=== PATIENT | male | born 1980 | race Caucasian/White ===

== ENCOUNTER 2018-06-26 14:56 | Emergency (ER) | payer OTHER ==
[2018-06-26] MEDS ORDERED: Lidocaine 2% 20 ML MDV INJECT ONE (14:57)
--- NOTE | 2018-06-26 15:36 | EDM.PDOC ---
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 There is no active bleeding. His range of motion and sensation are intact. His tetanus vax status needs updating. L 3rd digit Pain Score (Numeric/FACES): 1 - Related Data Allergies Allergy/AdvReac Type Severity Reaction Status Date / Time amoxicillin [Amoxicillin] Allergy Cannot Verified 07/02/14 06:06 Remember codeine Allergy Cannot Verified 07/02/14 06:06 Remember erythromycin base Allergy Hives Verified 06/26/18 15:19 Home Meds: Home Meds NK [No Known Home Meds] 07/02/14 [History] ED ROS GENERAL - Review of Systems Review Of Systems: ROS reveals no pertinent complaints other than HPI. ED EXAM, SKIN/RASH Exam: See Below Exam Limited By: No Limitations General Appearance: Alert, WD/WN, No Apparent Distress Head: Atraumatic Neck: Normal Inspection, Supple, Non-Tender, Full Range of Motion Respiratory/Chest: Lungs Clear Cardiovascular: Regular Rate, Rhythm Back Exam: Normal Inspection Extremities: Normal Range of Motion, Other (L middle finger: open dorsal linear wound measuring 1.8 cm with grease and debris from glove; FROM, CMS intact) Neurological: Alert, Oriented, CN II-XII Intact Psychiatric: Normal Affect, Normal Mood Skin: Warm, Dry, No Rash, Other (wound to L middle finger as annotated above) ED SKIN PROCEDURES - Laceration/Wound Repair Left Midline Distal Other Lac/Wound length In cm: 1.8 (L middle finger) Appearance: Subcutaneous, Linear, Moderately Contaminated Distal NVT: Neuro & Vascular Intact, No Tendon Injury Local Anesthesia - Lidocaine (Xylocaine): 2% Plain Local Anesthetic Volume: 3cc Skin Prep: Chlorhexidine (Hibiciens), Other (surgisoap) Exploration/Debridement/Repair: Wound Explored, Moderate Debridement Closed with: Sutures Suture Size: 4-0 # of Sutures: 4 Suture Type: Nylon Drain Placement: No Sterile Dressing Applied: Nurse Tetanus Status Addressed: Yes Complications: No Course - Vital Signs Text/Narrative:: Patient tolerated procedure well. An Adacel vax was administered. Last Recorded V/S: Last Vital Signs Temp 36.6 C 06/26/18 15:15 Pulse 84 06/26/18 15:15 Resp 18 06/26/18 15:15 BP 149/84 H 06/26/18 15:15 Pulse Ox 99 06/26/18 15:15 - Orders/Labs/Meds Orders: Active Orders 24 hr Category Date Time Status Vaccines to be Administered [RC] PER UNIT ROUTINE Care 06/26/18 15:41 Ordered Meds: Medications Discontinued Medications Generic Name Dose Route Start Last Admin Trade Name Freq PRN Reason Stop Dose Admin Diphtheria/Tetanus/Acell Pertussis 0.5 ml 06/26/18 15:40 Adacel IM 06/26/18 15:41 .ONCE ONE Departure - Departure Time of Disposition: 16:06 Disposition: Home, Self-Care 01 Condition: Good Clinical Impression: Laceration of left middle finger Qualifiers: Encounter type: initial encounter Damage to nail status: without damage Foreign body presence: without foreign body Qualified Code(s): S61.213A - Laceration without foreign body of left middle finger without damage to nail, initial encounter - Discharge Information *PRESCRIPTION DRUG MONITORING PROGRAM REVIEWED*: Not Applicable *COPY OF PRESCRIPTION DRUG MONITORING REPORT IN PATIENT VALARIE: Not Applicable Referrals: Tung Gan MD [Primary Care Provider] - Forms: ED Department Discharge - Problem List & Annotations (1) Laceration of left middle finger SNOMED Code(s): 581402973 Code(s): S61.213A - LACERATION W/O FB OF L MID FINGER W/O DAMAGE TO NAIL, INIT Status: Acute Current Visit: Yes Annotation/Comment:: Routine wound cares, keep clean and covered. Qualifiers: Encounter type: initial encounter Damage to nail status: without damage Foreign body presence: without foreign body Qualified Code(s): S61.213A - Laceration without foreign body of left middle finger without damage to nail, initial encounter - Problem List Review Problem List Initiated/Reviewed/Updated: Yes - My Orders Last 24 Hours: My Active Orders 06/26/18 15:41 Vaccines to be Administered [RC] PER UNIT ROUTINE - Assessment/Plan Last 24 Hours: My Active Orders 06/26/18 15:41 Vaccines to be Administered [RC] PER UNIT ROUTINE Plan: Suture removal in 10 days.
[2018-06-26] MEDS ORDERED: Diphtheria,Pertussis(Acell),Tetanus Vaccine 0.5 ML SDV IM ONE (15:40)
== END 2018-06-26 16:26 | disposition home or self-care (01) ==
LOC: FB.ED 14:56
DX: S61.213A Laceration without foreign body of left middle finger without damage to nail, initial encounter (principal); Z23 Encounter for immunization; Z88.5 Allergy status to narcotic agent; Z88.1 Allergy status to other antibiotic agents; W31.89XA Contact with other specified machinery, initial encounter
CPT/HCPCS: 12001; 90471; 90715; 99282

== ENCOUNTER 2022-06-11 07:30 | Emergency (ER) | payer BC, OTHER ==
[2022-06-11] MEDS ORDERED: Lidocaine 2% Viscous Solution 15 ML UD TOP ONE (07:39)
[2022-06-11] MEDS ORDERED: Acetaminophen 500 MG Tab PO ONE (07:39)
[2022-06-11] MEDS ORDERED: Lidocaine 2% Viscous Solution 15 ML UD ONE (07:40)
[2022-06-11] MEDS ORDERED: Bacitracin Oint 1 GM U/D Packet TOP ONE (08:19)
== END 2022-06-11 08:50 | disposition home or self-care (01) ==
LOC: FB.ED 07:30
DX: S61.301A Unspecified open wound of left index finger with damage to nail, initial encounter (principal); W26.9XXA Contact with unspecified sharp object(s), initial encounter; Z88.0 Allergy status to penicillin
CPT/HCPCS: 99283; A9270